=== PATIENT | female | born 1950 | race African-American/Black ===

== ENCOUNTER 2020-10-14 08:14 | Day surgery (SDC) | payer OTHER ==
[2020-10-13 11:31] VITALS: BMI 29.2
[2020-10-14] MEDS ORDERED: LIDOCAINE HCL/PF 2% SDV 5ML VIAL ONE (08:42)
[2020-10-14] MEDS ORDERED: PROPOFOL 20 ML ONE ×3 (08:42)
[2020-10-14 09:27] VITALS: TEMP 97
[2020-10-14 10:10] VITALS: BP 125/80; PULSE 78
== END 2020-10-14 10:09 | disposition home or self-care (01) ==
LOC: FASU-ENDO 08:14
PROVIDERS: ATTEND Internal Medicine Gastroenterology
PROC: 0D5H8ZZ Destruction of Cecum, Via Natural or Artificial Opening Endoscopic (ICD-10-PCS; 2020-10-14)
PROC: 0DBN8ZX Excision of Sigmoid Colon, Via Natural or Artificial Opening Endoscopic, Diagnostic (ICD-10-PCS; principal; 2020-10-14 08:58)
DX: D50.9 Iron deficiency anemia, unspecified (principal); D12.5 Benign neoplasm of sigmoid colon; K55.20 Angiodysplasia of colon without hemorrhage; R19.5 Other fecal abnormalities; Z86.010 Personal history of colon polyps
CPT/HCPCS: 82962; 88305-TC